=== PATIENT | male | born 1970 ===

== ENCOUNTER 2018-11-09 22:36 | Emergency (ER) | payer SELFPAY ==
[2018-11-09 22:42] VITALS: BP 133/81; PULSE 76; TEMP 99; BMI 25.7
--- NOTE | 2018-11-09 22:44 | PDOC ---
History of Present Illness - General Chief Complaint: Injury Stated Complaint: RT KNEE PAIN History Source: Patient Exam Limitations: No Limitations - History of Present Illness Initial Comments: 11/09/18 22:41 This is a 48-year-old male who comes in complaining of right knee pain. Patient injured it playing any years ago and intermittently has pain in the knee. Patient said the last time he had pain was approximately year ago for which she took some anti-inflammatories. Patient hasn't taken anything this time. Patient is able to ambulate and did ambulate in. Patient otherwise is healthy. Allergies: as per nursing notes Past Medical History: none Social history: Lives with family. No smoking. No alcohol. No illicit drugs. Surgical history: None General: No fevers or chills, no weakness, no weight loss HEENT: No change in vision. No sore throat,. No ear pain CardioVascular: no chest discomfort. No shortness of breath Respiratory:No cough, or wheezing. Gastrointestinal: no nausea, vomiting, diarrhea or constipation, No rectal bleeding Genitourinary: No dysuria, hematuria, or frequency Musculoskeletal: Right knee pain as per history of present illness Neurologic: No headache, vertigo, dizziness or loss of consciousness Psychiatric: nor depression Skin: No rashes or easy bruising Endocrine: no increased thirst or abnormal weight change Allergic: no skin or latex allergy All other systems reviewed and normal GENERAL: The patient is awake, alert, and fully oriented, in no acute distress. HEAD: Normal with no signs of trauma. EYES: Pupils equal, round and reactive to light, extraocular movements intact, sclera anicteric, conjunctiva clear. EXTREMITIES: Right knee: There is no swelling or ecchymosis, there is no tenderness on palpation there is full range of motion with minimal discomfort. Patient's only discomfort is on bearing weight. Neurovascular is intact. NEUROLOGICAL: Normal speech, normal gait. PSYCH: Normal mood, normal affect. SKIN: Warm, Dry, normal turgor, no rashes or lesions noted. Assessment and plan: This is a 48-year-old male who comes in complaining of right knee pain. Patient only has pain with weightbearing. Patient given Henrik wrap and the ibuprofen. Patient discharged will follow-up with orthopedist. Past History - Past Medical History Allergies/Adverse Reactions: Allergies Allergy/AdvReac Type Severity Reaction Status Date / Time No Known Allergies Allergy Unverified 11/09/18 22:37 Home Medications: Ambulatory Orders NK [No Known Home Medication] 11/09/18 *DC/Admit/Observation/Transfer Diagnosis at time of Disposition: Right knee pain Qualifiers: Chronicity: acute Qualified Code(s): M25.561 - Pain in right knee - Discharge Dispostion Disposition: HOME Condition at time of disposition: Stable Decision to Admit order: No - Referrals Referrals: Cachorro Ledbetter MD [Staff Physician] - - Patient Instructions Additional Instructions: For the pain take ibuprofen 3 tablets 3 times a day with food don't take on an empty stomach. Wear the Henrik wrap as needed for comfort. You can also use a cane as needed for ambulation. Follow-up with Dr. Ledbetter. Return to the emergency department immediately with ANY new, persistent or worsening symptoms. Continue any medications as previously prescribed by your physician. You should follow up with your primary doctor as soon as possible regarding today's emergency department visit. . Please make sure your doctor reviews the results of your emergency evaluation. Thank you for coming to the Emergency Department today for your care. It was a pleasure to see you today. Please note that your evaluation is INCOMPLETE until you follow-up with your doctor. - Post Discharge Activity
[2018-11-09] MEDS ORDERED: KETOROLAC TROMETHAMINE 60 MG/2 ML VIAL IM ONE (22:46)
[2018-11-09] MEDS ORDERED: KETOROLAC TROMETHAMINE 60 MG/2 ML VIAL ONE (22:46)
== END 2018-11-09 22:51 | disposition home or self-care (01) ==
LOC: FER 22:36
PROC: 3E0233Z Introduction of Anti-inflammatory into Muscle, Percutaneous Approach (ICD-10-PCS; principal; 2018-11-09)
DX: M25.561 Pain in right knee (principal)
CPT/HCPCS: 99281-25